=== PATIENT | female | born 1980 | race Caucasian/White ===

== ENCOUNTER 2020-08-30 10:41 | Day surgery (SDC) | payer MEDICAID, SELFPAY ==
[2020-08-30] VITALS (7 sets, daily range): BP systolic 90–111; BP diastolic 49–70; PULSE 57–67; RESP 16–18; TEMP 36.2–36.7; O2SAT 100; BMI 22.3
--- NOTE | 2020-08-30 11:19 | RAD_ITS ---
HISTORY: SI joint injection in OR. Exam is 3 spot fluoroscopic images of an SI joint. It is not labeled as weathered his left or right. End of patient positioning. I suspect the patient is prone images the right. The needle is placed over the SI joint. There is an injection. I'm not sure where the fluid injected into, but I believe it is not within the joint. On the last image. Tip of the needle is above the injected contrast, and may be within the joint RAD/Fluoro Guided Needle Placement IMPRESSION: 3 spot fluoroscopic images were injection of an SI joint. No radiologist was in attendance. at 0055 Reported and signed by: Viraj Galeana MD Electronically Signed: Viraj Galeana MD at 0:54 EDT Tel , Service support ,
[2020-08-30] MEDS: Lactated Ringers 1,000 ML 100 ML IV (11:22)
[2020-08-30] MEDS: Bupivacaine 0.25% 30 ML Vial (11:28)
[2020-08-30] MEDS: MethylPREDNISolone Acetate 80 MG/ML Vial (11:28)
--- NOTE | 2020-09-02 08:17 | PCM.OPRPT ---
Report of Operation Date of Procedure: 08/30/20 Description of Surgical Findings:: PREOPERATIVE DIAGNOSES: 1. Sacroiliitis. 2. Sacroiliac joint dysfunction. POSTOPERATIVE DIAGNOSES: 1. Sacroiliitis. 2. Sacroiliac joint dysfunction. PROCEDURE PERFORMED: RIGHT-sided sacroiliac joint steroid injection under fluoroscopy guidance. ANESTHESIA: MAC. BLOOD LOSS: Minimal. COMPLICATIONS: None. DESCRIPTION OF PROCEDURE: History and physical of today was reviewed. Risks and benefits of the procedure were explained. The patient understood and agreed to the procedure. Informed consent was obtained. IV inserted per routine protocol. The patient was taken to the operating room and placed in the prone position with a pillow positioned underneath the abdomen. The RIGHT lower back and buttock area was prepped and draped in a sterile fashion using iodine x3. Under fluoroscopy guidance on an AP view, the RIGHT SI joint was visualized. The skin and subcutaneous tissue was anesthetized with approximately 3 mL of 1% lidocaine using a 25-gauge regular needle. Under direct visualization with fluoroscopy at approximately 15-degree angle, using a 22-gauge 3-1/2-inch spinal needle, the needle was advanced via the skin. The tip of the needle was maneuvered and directed towards the inferior one-third of the posterior SI joint. Once the tip of the needle was at the vicinity of the joint, after negative aspiration for blood or CSF, a total of 1 mL of contrast was injected to confirm correct placement of the needle as well as cephalocaudal spread. Confirmation was obtained on AP as well as oblique view. After repeated negative aspiration and confirmation, a total of 4 mL of preservative-free 0.25% Marcaine with 40 mg of Depo-Medrol was injected in and around the SI joint. The needle was then removed intact. The patient experienced no sign or symptoms of intrathecal or intravascular injection. The patient experienced no paresthesia. The procedure was completed without any apparent difficulty or any complications. The patient appeared to tolerate it well. ASSESSMENT AND PLAN: This is a 39 year old female with sacroiliitis, SI joint dysfunction s/p right side RIGHT-sided sacroiliac joint steroid injection under fluoroscopy guidance. The patient will continue her current medications, patient will follow in two weeks for reevaluation.
== END 2020-08-30 12:45 | disposition home or self-care (01) ==
LOC: SDC 10:43 → AC 10:58
PROVIDERS: PCP Family Medicine; Referring Provider Anesthesiology Pain Medicine; Visit Provider Anesthesiology Pain Medicine
PROC: 3E0U3GC Introduction of Other Therapeutic Substance into Joints, Percutaneous Approach (ICD-10-PCS; CPT 27096; principal; 2020-08-30 11:55)
DX: M46.1 Sacroiliitis, not elsewhere classified (principal); M53.3 Sacrococcygeal disorders, not elsewhere classified
CPT/HCPCS: 27096; 76000; 77002; J7120